=== PATIENT | female | born 1965 ===

== ENCOUNTER 2018-10-12 19:01 | Emergency (ER) | payer SELFPAY ==
[2018-10-12 19:06] VITALS: O2SAT 99
[2018-10-12] MEDS ORDERED: Naproxen 500 MG TAB PO STA (19:23)
--- NOTE | 2018-10-12 19:41 | ED PDOC ---
HPI: General Adult Time Seen by Provider: 10/12/18 19:16 Chief Complaint (Nursing): ENT Problem Chief Complaint (Provider): Right Ear Pain History Per: Patient History/Exam Limitations: no limitations Onset/Duration Of Symptoms: Days (x3) Current Symptoms Are (Timing): Still Present Additional Complaint(s): 52 year old female presents to the ED for evaluation of worsening right ear pain for the past three days, which radiates into her face and right side of head. Pains worsens with direct contact of ear. She denies associated symptoms and did not take any medication prior to arrival. No fever/chills or drainage from the ear. PMD: Brian Past Medical History Reviewed: Historical Data, Nursing Documentation, Vital Signs Vital Signs: Last Vital Signs Temp 98 F 10/12/18 19:05 Pulse 87 10/12/18 19:05 Resp 16 10/12/18 19:05 BP 149/87 10/12/18 19:05 Pulse Ox 99 10/12/18 19:05 - Medical History PMH: HTN, Hypothyroidism - Surgical History Surgical History: No Surg Hx - Family History Family History: States: Unknown Family Hx - Social History Current smoker - smoking cessation education provided: No Alcohol: None Drugs: Denies - Home Medications Home Medications: Ambulatory Orders Medication Instructions Recorded Cyclobenzaprine [Flexeril] 10 mg PO TID #27 tab 08/11/18 Diclofenac Potassium 50 mg PO BID #20 tablet 08/11/18 Amoxicillin 875 mg PO BID #14 tablet 10/12/18 Ciprofloxacin/Dexamethasone 4 drop AD BID #1 bottle 10/12/18 [Ciprodex Otic] Naproxen 500 mg PO BID PRN #20 tab 10/12/18 - Allergies Allergies/Adverse Reactions: Allergies Allergy/AdvReac Type Severity Reaction Status Date / Time No Known Allergies Allergy Verified 10/12/18 19:07 Review of Systems ROS Statement: Except As Marked, All Systems Reviewed And Found Negative ENT: Positive for: Ear Pain (right, radiating into right side of face/head) Physical Exam - Reviewed Nursing Documentation Reviewed: Yes Vital Signs Reviewed: Yes - Physical Exam Comments: GENERAL APPEARANCE: Patient is awake, alert, oriented x 3, in no acute distress. Resting comfortably. SKIN: Warm, dry; (-) cyanosis. ENMT: Right ear canal : (+) erythematous, (+) edematous (+) exudate. Left canal unremarkable. Right TM: (+) TM bulging and (+) erythema, (-) perforation, (-) vesicles; left TM unremarkable. (+) Pain with helix and tragus movement of right ear. Frontal / maxillary sinuses : (-) tenderness. (-) TMJ tenderness. Pharynx: Clear; (-) erythema, (-) exudate. Uvula midline. Airway patent: (-) stridor. NECK: Supple, FROM (-) stiffness, (-) tenderness, (-) lymphadenopathy. LUNGS: clear to auscultation bilaterally, (-) wheezing, (-) rhonchi, (-) rales. Respirations even and nonlabored. CARDIAC: RRR NEURO: Mental status as above. Gait: steady. Speech: clear. (-) facial asymmetry (-) aphasia. - ECG O2 Sat by Pulse Oximetry: 99 (RA) Pulse Ox Interpretation: Normal Medical Decision Making Medical Decision Making: Time: 1924 Initial Impression: otitis media and externa of right ear Initial Plan: --Amoxicillin 500mg PO --Naproxen 500mg PO --Accucheck 2019 Accucheck: 108 On re-evaluation, patient reports improvement of symptoms. On exam, patient remains AAOx3, in no acute distress. Vitals stable. Lab/Diagnostic results d/w the patient in great detail. Diagnosis of otitis media and externa of right ear d/w the patient. Based on history, exam and diagnostic results, plan will be for outpatient follow up with PMD/ENT. Patient instructed to follow-up with pmd / referral provided / the clinic in 1- 2 days without fail. Advised to take medication as prescribed. Return to the emergency room at any time for any new or worsening symptoms. Patient states she fully agrees with and understands discharge instructions. States that she agrees with the plan and disposition. Verbalized and repeated discharge instructions and plan. I have given the patient opportunity to ask any additional questions. Scribe Attestation: Documented by Lisa Diaz, acting as a scribe for Rosa Murillo PA-C Provider Scribe Attestation: All medical record entries made by the Scribe were at my direction and personally dictated by me. I have reviewed the chart and agree that the record accurately reflects my personal performance of the history, physical exam, medical decision making, and the department course for this patient. I have also personally directed, reviewed, and agree with the discharge instructions and disposition. Disposition - Clinical Impression Clinical Impression: Right ear pain, Otitis media, Otitis externa - Patient ED Disposition Is Patient to be Admitted: No Counseled Patient/Family Regarding: Studies Performed, Diagnosis, Need For Followup, Rx Given - Disposition Referrals: primary, doctor [Other] Gino Aguiar MD [Staff Provider] - Disposition: Routine/Home Disposition Time: 20:20 Condition: STABLE Additional Instructions: La atencin mdica de emergencia que recibi hoy se dirigi a evie sntomas agudos. Si le recetaron algn medicamento, llnelo y tmelo segn las indicaciones. Los sntomas pueden tardar varios salinas en resolverse. Regrese al Departamento de Emergencias si evie sntomas empeoran, no mejoran o si tiene otros problemas. Comunquese con perry mdico dentro de 2 salinas para malachi nueva evaluacin y bee un seguimiento o llame a susan de los mdicos / clnicas a los que mac sido referido y que figuran en el formulario de Informacin de visita al paciente que se incluye en perry paquete de nataly. Lleve todos los documentos que le entregaron al momento del nataly junto con todos los medicamentos que est tomando para perry visita de seguimiento. Nuestro tratamiento no puede reemplazar la atencin mdica continua por parte de un proveedor de atencin primaria (PCP) fuera del departamento de emergencias. Prescriptions: Amoxicillin 875 mg PO BID #14 tablet Ciprofloxacin/Dexamethasone [Ciprodex Otic] 4 drop AD BID #1 bottle Naproxen 500 mg PO BID PRN #20 tab PRN Reason: Pain, Moderate (4-7) Instructions: Ear Infections (Otitis Media), Outer Ear Infection Forms: [facility] ([place]ese) Print Language: DOMINICAN - POA Present On Arrival: None
[2018-10-12] MEDS ORDERED: Naproxen 500 MG TAB PO ONE (19:51)
[2018-10-12 21:29] VITALS: BP 130/76; PULSE 70; RESP 18; TEMP 98.4
== END 2018-10-12 21:28 | disposition home or self-care (01) ==
LOC: H.ER 19:01
DX: H66.91 Otitis media, unspecified, right ear (principal); E03.9 Hypothyroidism, unspecified; I10 Essential (primary) hypertension